=== PATIENT | female | born 1995 | race Caucasian/White ===

== ENCOUNTER 2017-01-20 23:30 | Emergency (ER) | payer OTHER ==
[2017-01-20 23:44] VITALS: TEMP 98.1
--- NOTE | 2017-01-20 23:59 | CPEKG ---
Heart Rate: 84 RR Interval: 714 P-R Interval: 136 QRSD Interval: 86 QT Interval: 364 QTC Interval: 431 P [place]: 21 QRS [place]: 49 T Wave [place]: -14 EKG Severity - BORDERLINE ECG - EKG Impression: SINUS RHYTHM EKG Impression: BORDERLINE T ABNORMALITIES, DIFFUSE LEADS Electronically Signed By: Dyllan Denise 23-Jan-2017 12:14:10
--- NOTE | 2017-01-21 00:05 | EDPHY ---
H & P Stated Complaint: 2030: BLOWING UP BALLOONS, HAD SVT, GONE NOW BUT SOB HPI/ROS: HPI CHIEF COMPLAINT: Heart palpitations now resolved HISTORY OF PRESENT ILLNESS: Patient very pleasant 21-year-old female otherwise healthy she does have a history of SVT status post ablation. She presents emergency room after she states she felt her heart rate racing and she got short of breath around 830 this evening. She was blowing up wounds. She states she got to the 3rd balloon felt short of breath and realized that her heart was racing around 130 per minute. She denies any significant chest pain. She does state that she can't take a deep breath in. This now has all resolved. She denies any chest pain or shortness of breath at this time. Denies racing heart. She tells me she feels fine. Past Medical History: Denies medical history except for SVT status post ablation Past Surgical History: SVT status post ablation Social History: Denies daily use of drugs alcohol tobacco products. Family History: Noncontributory ROS REVIEW OF SYSTEMS: A comprehensive 10 point review of systems is otherwise negative aside from elements mentioned in the history of present illness. Exam Constitutional appears well nontoxic, triage nursing summary reviewed, vital signs reviewed, awake/alert. Eyes normal conjunctivae and sclera, EOMI, PERRLA. HENT normal inspection, atraumatic, moist mucus membranes, no epistaxis, neck supple/ no meningismus, no raccoon eyes. Respiratory clear to auscultation bilaterally, normal breath sounds, no respiratory distress, no wheezing. Cardiovascular rate normal, regular rhythm, no murmur, no edema, distal pulses normal. Gastrointestinal soft, non-tender, no rebound, no guarding, normal bowel sounds, no distension, no pulsatile mass. Genitourinary no CVA tenderness. Musculoskeletal no midline vertebral tenderness, full range of motion, no calf swelling, no tenderness of extremities, no meningismus, good pulses, neurovascularly intact. Skin pink, warm, & dry, no rash, skin atraumatic. Neurologic awake, alert and oriented x 3, AAOx3, moves all 4 extremities equally, motor intact, sensory intact, CN II-XII intact, normal cerebellar, normal vision, normal speech. Psychiatric normal mood/affect. Heme/Lymph/Immune no lymphadenopathy. Differential Diagnosis: Includes but is not limited to in a particular order, cardiac arrhythmia, SVT, palpitations, dehydration, electrolyte abnormality, pulmonary embolism, pneumothorax Medical Decision Making: Plan for this patient chest x-ray two view rule out pneumothorax given that she was blowing up wounds and felt short of breath, IV establishment fluid bolus, check basic blood work including electrolytes and magnesium, D-dimer to rule out PE. EKG. inclusion special educator. Re-evaluation: EKG interpretation by me on record in [employer] system. Impression time of EKG 2353, this is sinus rhythm rate of 84 T-wave abnormality AVR, lead 3, V1. Subtle T-wave inversion V2. Otherwise no signs of cardiac arrhythmia. No signs of WPW or Brugada. No signs of prolonged intervals. No signs of ischemia. 0116: Patient resting comfortably here in emergency room in no acute distress. 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 EKG not acutely ischemic. Blood work is reassuring with a negative D-dimer. Chest x-ray has been reviewed. ED x-ray chest two view: Negative for acute cardiopulmonary disease. Specifically no pneumothorax. 0117: I did re-evaluate this patient this time she is resting comfortably no acute distress. Has no complaints. Like to go home. She understands she gets return of palpitations chest pain or shortness of breath she needs return emergency room. Source: Patient - Personal History LMP (Females 10-55): Irregular Current Tetanus/Diphtheria Vaccine: Unsure - Medical/Surgical History Hx Asthma: No Hx Chronic Respiratory Disease: No Hx Diabetes: No Hx Cardiac Disease: Yes Hx Renal Disease: No Hx Cirrhosis: No Hx Alcoholism: No Hx HIV/AIDS: No Hx Splenectomy or Spleen Trauma: No Other PMH: SVT, IRREG PERIODS, MONO 2015, TONISILECTOMY, FAMILY HX BLOOD CLOTTING DISORDER - Social History Smoking Status: Never smoked Constitutional: Initial Vital Signs Temperature (C) 36.7 C 01/20/17 23:41 Heart Rate 84 01/20/17 23:41 Respiratory Rate 20 01/20/17 23:41 Blood Pressure 119/94 H 01/20/17 23:41 O2 Sat (%) 98 01/20/17 23:41 O2 Delivery Mode Room Air Allergies/Adverse Reactions: No Known Allergies Allergy (Unverified 01/20/17 23:40) Home Medications: Medication Instructions Recorded Lo Loestrin Fe 1-10 Tablet 01/20/17 Metoprolol Tartrate 01/20/17 Medical Decision Making - Data Points Laboratory Results: Laboratory Results 01/20/17 23:54 01/20/17 23:54 01/20/17 01/20/17 01/20/17 23:54 23:54 23:54 WBC 10.68 10^3/uL H 10^3/uL (3.80-9.50) RBC 4.14 10^6/uL L 10^6/uL (4.18-5.33) Hgb 14.0 g/dL g/dL (12.6-16.3) Hct 40.3 % % (38.0-47.0) MCV 97.3 fL fL (81.5-99.8) MCH 33.8 pg pg (27.9-34.1) MCHC 34.7 g/dL g/dL (32.4-36.7) RDW 13.2 % % (11.5-15.2) Plt Count 250 10^3/uL 10^3/uL (150-400) MPV 10.6 fL fL (8.7-11.7) Neut % (Auto) 49.4 % % (39.3-74.2) Lymph % (Auto) 42.1 % % (15.0-45.0) [place] % (Auto) 6.5 % % (4.5-13.0) Eos % (Auto) 1.1 % % (0.6-7.6) Baso % (Auto) 0.7 % % (0.3-1.7) Nucleat RBC Rel Count 0.0 % % (0.0-0.2) Absolute Neuts (auto) 5.28 10^3/uL 10^3/uL (1.70-6.50) Absolute Lymphs (auto) 4.50 10^3/uL H 10^3/uL (1.00-3.00) Absolute Monos (auto) 0.69 10^3/uL 10^3/uL (0.30-0.80) Absolute Eos (auto) 0.12 10^3/uL 10^3/uL (0.03-0.40) Absolute Basos (auto) 0.07 10^3/uL 10^3/uL (0.02-0.10) Absolute Nucleated RBC 0.00 10^3/uL 10^3/uL (0-0.01) Immature Gran % 0.2 % % (0.0-1.1) Immature Gran # 0.02 10^3/uL 10^3/uL (0.00-0.10) D-Dimer 0.28 ug/mLFEU ug/mLFEU (0.00-0.50) Sodium 142 mEq/L mEq/L (134-144) Potassium 3.7 mEq/L mEq/L (3.5-5.2) Chloride 104 mEq/L mEq/L (97-110) Carbon Dioxide 20 mEq/l L mEq/l (22-31) Anion Gap 18 mEq/L H mEq/L (8-16) BUN 14 mg/dL mg/dL (7-23) Creatinine 0.7 mg/dL mg/dL (0.6-1.0) Estimated GFR > 60 Glucose 108 mg/dL H mg/dL (70-100) Calcium 10.1 mg/dL mg/dL (8.5-10.4) Magnesium 1.7 mg/dL mg/dL (1.6-2.3) Medications Given: Discontinued Medications Sodium Chloride (Ns) 1,000 mls @ 0 mls/hr IV EDNOW ONE; Wide Open PRN Reason: Protocol Stop: 01/21/17 00:07 Last Admin: 01/21/17 00:54 Dose: 1,000 mls Departure - Departure Disposition: Home, Routine, Self-Care Clinical Impression: Palpitations Condition: Good Instructions: Palpitations (ED) Additional Instructions: 1. Return emergency room immediately if he develops chest pain, shortness of breath, palpitations. Referrals: DR ELOINA [Other] - As per Instructions
[2017-01-21] MEDS ORDERED: NS 1,000 ML IV ONE (00:06)
[2017-01-21 00:11] VITALS: RESP 16
[2017-01-21 00:11] LABS: % IMMATURE GRANULYOCYTES 0.2 % (0.0-1.1); ABSOLUTE IMMATURE GRANULOCYTES 0.02 10^3/uL (0.00-0.10); ADD DIFF? NO; ADD MORPH? NO; ADD SCAN? NO; ATYPICAL LYMPHOCYTE FLAG 20 (0-99); FRAGMENT RBC FLAG 0 (0-99); HEMATOCRIT 40.3 % (38.0-47.0); LEFT SHIFT FLG 0 (0-99); LIPEMIA HEMOLYSIS FLAG 90 (0-99); MEAN CELL HEMOGLOBIN 33.8 pg (27.9-34.1); MEAN CELL HEMOGLOBIN CONCENTR. 34.7 g/dL (32.4-36.7); MEAN CELL VOLUME 97.3 fL (81.5-99.8); MEAN PLATELET VOLUME 10.6 fL (8.7-11.7); PLATELET CLUMPS FLAG 0 (0-99); PLATELET COUNT 250 10^3/uL (150-400); RED BLOOD CELL COUNT 4.14 10^6/uL (4.18-5.33); RED CELL DISTRIBUTION WIDTH 13.2 % (11.5-15.2)
[2017-01-21 00:24] LABS: ANION GAP 18 mEq/L (8-16); CALCIUM 10.1 mg/dL (8.5-10.4); CARBON DIOXIDE 20 mEq/l (22-31); CHLORIDE 104 mEq/L (97-110); CREATININE 0.7 mg/dL (0.6-1.0); GLOMERULAR FILTRATION RATE > 60; GLUCOSE 108 mg/dL (70-100); MAGNESIUM 1.7 mg/dL (1.6-2.3); POTASSIUM 3.7 mEq/L (3.5-5.2); SODIUM 142 mEq/L (134-144)
[2017-01-21 01:28] VITALS: BP 109/76; PULSE 86; O2SAT 98
== END 2017-01-21 01:32 | disposition home or self-care (01) ==
DX: R00.2 Palpitations (principal); E86.9 Volume depletion, unspecified